=== PATIENT | female | born 1980 | race Caucasian/White ===

== ENCOUNTER → 2020-10-01 | Outpatient (CLI) | payer BC, OTHER | LOC: LAB 08:21 | DX: E03.9 Hypothyroidism, unspecified (principal); R30.0 Dysuria | CPT/HCPCS: 36415; 80061; 81001; 84443; 87086 ==

== ENCOUNTER → 2021-04-10 | Outpatient (CLI) | payer BC ==
[2021-04-10 09:16] LABS: HEMOGLOBIN 12.9 gm/dl (12.3-15.3); RED BLOOD COUNT 4.58 M/UL (4.00-5.10); WHITE BLOOD COUNT 8.9 K/UL (4.5-11.0)
[2021-04-10 11:29] LABS: BUN/CREATININE RATIO 18 (0-10)
== END ==
LOC: LAB 08:30
PROVIDERS: Family Medicine
DX: R53.83 Other fatigue (principal); E03.9 Hypothyroidism, unspecified; Z13.220 Encounter for screening for lipoid disorders
CPT/HCPCS: 36415; 80053; 80061; 83036; 84439; 84443; 85025

== ENCOUNTER → 2021-09-25 | Outpatient (CLI) | payer BC ==
[2021-09-25 16:38] LABS: HEMOGLOBIN 11.4 gm/dl (12.3-15.3); RED BLOOD COUNT 4.16 M/UL (4.00-5.10); WHITE BLOOD COUNT 8.4 K/UL (4.5-11.0)
[2021-09-26 07:11] LABS: HEMOGLOBIN A1C 6.2 % (4.8-5.6); TSH 1.44 uIU/mL (0.450-4.500); VITAMIN D, 25-HYDROXY 10.1 ng/mL (30.0-100.0)
== END ==
LOC: LAB 15:32
PROVIDERS: Family Medicine
DX: E03.9 Hypothyroidism, unspecified (principal); R53.83 Other fatigue; R73.9 Hyperglycemia, unspecified
CPT/HCPCS: 36415; 82607; 83036; 84439; 84443; 85025

== ENCOUNTER → 2021-10-07 | Outpatient (CLI) | payer BC | LOC: EROP 08:14 | DX: Z20.822 Contact with and (suspected) exposure to COVID-19 (principal) | CPT/HCPCS: U0002 ==